=== PATIENT | male | born 1990 | race Caucasian/White ===

== ENCOUNTER 2016-09-23 12:18 | Emergency (ER) | payer MEDICAID, OTHER ==
[~2016-09-23] VITALS: Ht 180.3 cm; Wt 88.5 kg
[2016-09-23 12:37] VITALS: BP 108/74
[2016-09-23] MEDS ORDERED: KETOROLAC TROMETH 60MG/2ML VIAL IM ONE (14:15)
== END 2016-09-23 14:45 | disposition home or self-care (01) ==
LOC: ER 12:18
DX: S39.012A Strain of muscle, fascia and tendon of lower back, initial encounter (principal); V49.49XA Driver injured in collision with other motor vehicles in traffic accident, initial encounter; Y93.89 Activity, other specified; Y99.8 Other external cause status; Y92.410 Unspecified street and highway as the place of occurrence of the external cause
CPT/HCPCS: 96372; 99283; J1885